=== PATIENT | male | born 1940 | race Caucasian/White ===

== ENCOUNTER 2019-05-27 18:13 | Emergency (ER) | payer MEDICARE, BC ==
[~2019-05-27 18:13] MED LIST: FLOMAX; MULT1CAP59 PO; NIA100 PO; SIMV-42 PO; SITA50TA7 PO
[2019-05-27] MEDS ORDERED: METF-450 PO (18:18)
[2019-05-27] MEDS ORDERED: ATOR40TA24 PO (18:18)
[2019-05-27] MEDS ORDERED: CARB-71 PO (18:18)
--- NOTE | 2019-05-27 18:25 | ER Report ---
History and Physical Time Seen By MD: 18:22 Hx. of Stated Complaint: PRODUCTIVE COUGH X 3-4 DAYS HPI/ROS CHIEF COMPLAINT: cough HISTORY OF PRESENT ILLNESS: This is a 79 year old male. He has had a cough for about 4 weeks now. Mild productive yellow sputum. Has had some chills, especially at night, but no known fevers. Having some sweats and fatigue. Mild loss of appetitie, but no nausea or vomiting or abdominal pain. Not short of breath and no chest pain. Mild runny nose. No sore throat. No pain. Allergies: Coded Allergies: No Known Drug Allergies (Verified , 05/27/19) Home Meds Active Scripts Azithromycin (ZITHROMAX) 250 Mg Tablet, 0 PO QDAY, #6 TAB 0 Refills Take 2 tablets today, then 1 tablet once a day starting tomorrow Prov:DERRELL MADRID MD 05/27/19 Reported Medications Atorvastatin Calcium (LIPITOR) 40 Mg Tablet, 1 TAB PO QDAY, TAB 05/27/19 Metformin Hcl (METFORMIN HCL) 500 Mg Tablet, 1 TAB PO QDAY, TAB 05/27/19 Carbidopa/Levodopa (SINEMET 25-100 MG TABLET) 1 Each Tablet, 1 EACH PO TID 05/27/19 Sitagliptin Phosphate (Januvia) 50 Mg Tablet, 50 MG PO DAILY, 0 Refills 06/10/11 Discontinued Reported Medications Niacin (Niacin) 100 Mg Tab, 100 MG PO QDAY, 0 Refills 06/10/11 Multivitamins (Multivitamin) 1 Each Capsule, 1 EACH PO DAILY, 0 Refills 06/10/11 [Flomax] No Conflict Check, 0 Refills 06/10/11 Simvastatin (Zocor) 20 Mg Tablet, 20 MG PO QHS, 0 Refills 06/10/11 Reviewed Nurses Notes: Yes Hx Smoking: Yes Hx Substance Use Disorder: No Hx Alcohol Use: Yes (OCC) Constitutional Vital Sign - Last 24 Hours 05/27/19 05/27/19 05/27/19 05/27/19 18:14 18:19 18:30 19:00 Temp 98.8 Pulse 88 Resp 20 B/P (MAP) 126/77 (93) 126/77 110/68 (82) 115/60 (78) Pulse Ox 95 O2 Delivery Room Air 05/27/19 05/27/19 05/27/1919 19:13 19:30 19:43 20:00 Pulse 83 84 B/P (MAP) 100/74 (83) 135/67 (89) Pulse Ox 96 95 93 Physical Exam General Appearance: Alert, no acute distress. Eyes: Pupils equal and round, no injection. ENT: Normal oral mucosa. Moist mucous membranes. Some posterior oropharynx drainage and erythema. Tympanic membranes and canals are normal. Neck: Neck is supple and non tender. Respiratory: Chest is non tender, lungs are clear to auscultation. Cardiac: regular rate and rhythm Neuro: Alert and oriented x3, no focal deficits. Skin: No rashes or lesions. DIFFERENTIAL DIAGNOSIS: After history and physical exam differential diagnosis was considered for ongoing cough with some symptoms that suggest possible viral restaurant infection or possible pneumonia Medical Decision Making Data Points Result Diagram: 05/27/19200905/27/192009 Laboratory Hematology Test 05/27/19 20:10 White Blood Count 8.6 k/uL (4.5-11.0) Red Blood Count 3.80 M/uL (4.00-5.60) L Hemoglobin 11.9 g/dL (14.0-18.0) L Hematocrit 33.7 % (42.0-52.0) L Mean Corpuscular Volume 88.7 fL (80.0-96.0) Mean Corpuscular Hemoglobin 31.5 pg (26.0-33.0) Mean Corpuscular Hemoglobin Concent 35.5 g/dL (32.0-36.0) Red Cell Distribution Width 12.8 % (11.5-14.5) Platelet Count 200 K/uL (150-450) Mean Platelet Volume 7.0 fL (7.2-11.1) L Neutrophils (%) (Auto) 76.0 % (39.4-72.5) H Lymphocytes (%) (Auto) 10.3 % (17.6-49.6) L Monocytes (%) (Auto) 12.7 % (4.1-12.4) H Eosinophils (%) (Auto) 0.5 % (0.4-6.7) Basophils (%) (Auto) 0.5 % (0.3-1.4) Nucleated RBC Relative Count (auto) 0.0 /100WBC Neutrophils # (Auto) 6.5 K/uL (2.0-7.4) Lymphocytes # (Auto) 0.9 K/uL (1.3-3.6) L Monocytes # (Auto) 1.1 K/uL (0.3-1.0) H Eosinophils # (Auto) 0.0 K/uL (0.0-0.5) Basophils # (Auto) 0.0 K/uL (0.0-0.1) Nucleated RBC Absolute Count (auto) 0.00 K/uL Chemistry Test 05/27/19 20:10 Sodium Level 136 mmol/L (137-145) Potassium Level 4.1 mmol/L (3.5-5.0) Chloride Level 103 mmol/L (98-107) Carbon Dioxide Level 23 mmol/L (22-30) Blood Urea Nitrogen 39 mg/dl (9-21) Creatinine 2.00 mg/dl (0.66-1.25) Glomerular Filtration Rate Calc 32.6 Random Glucose 118 mg/dl (75-110) Calcium Level 9.3 mg/dl (8.4-10.2) Total Bilirubin 1.4 mg/dl (0.2-1.3) Aspartate Amino Transf (AST/SGOT) 19 U/L (0-35) Alanine Aminotransferase (ALT/SGPT) 18 U/L (0-56) Alkaline Phosphatase 76 U/L (0-126) Total Protein 6.8 g/dl (6.3-8.2) Albumin 3.8 g/dl (3.5-5.0) EKG/Imaging Imaging 2 VIEWS CHEST INDICATION: Cough for 4 months COMPARISON: None available FINDINGS: Heart size within normal limits. There is a focal infiltrate within the lateral aspect of the right middle lobe. Left lung field appears clear. Mild coarsened interstitial changes of the lung tovar likely chronic in nature. . There is no pneumothorax or pleural effusion. IMPRESSION: 1. Right middle lobe infiltrate as above. Report Dictated By: José Luis Diego MD at 05/27/2019 7:32 PM ED Course/Re-evaluation ED Course Pneumonia identified on x-ray in the right middle lobe. Starting the patient on a azithromycin. We'll do blood cultures and labs prior to starting this and will call the patient with these results. Decision to Disposition Date: May 27, 2019 Decision to Disposition Time: 20:06 Depart Departure Latest Vital Signs Vital Signs Date Time Temp Pulse Resp B/P (MAP) Pulse Ox O2 Delivery O2 Flow Rate FiO2 05/27/19 20:00 135/67 (89) 93 05/27/19 19:43 84 05/27/19 18:19 98.8 20 Room Air Comment Patient left after labs obtained. Called and left a message for the patient regarding need to discuss some mild changes noted on labs results. Impression: Primary Impression: Community acquired pneumonia Condition: Improved Disposition: HOME OR SELF-CARE New Scripts Azithromycin (ZITHROMAX) 250 Mg Tablet 0 PO QDAY, #6 TAB 0 Refills Take 2 tablets today, then 1 tablet once a day starting tomorrow Prov: DERRELL MADRID MD 05/27/19 Patient Instructions: Community Acquired Pneumonia (ED) Additional Instructions: Start the antibiotic Azithromycin 250mg. Take 2 tablets today, then 1 tablet once a day for 4 more days. Total of 6 tablets. Rest and increase fluid intake. We recommend follow-up with a primary care provider for follow-up in the next 7- 10 days. Problem Qualifiers Primary Impression: Community acquired pneumonia Laterality: right Lung location: middle lobe of lung Qualified Codes: J18.1 - Lobar pneumonia, unspecified organism DERRELL MADRID MD May 27, 2019 18:25
--- NOTE | 2019-05-27 19:40 | RADIOLOGY IMAGING REPORT ---
FACILITY: [facility] PATIENT NAME: Williams Callahan : 1940 MR: [id number] V: [id number] EXAM DATE: ORDERING PHYSICIAN: DERRELL MADRID TECHNOLOGIST: Location: [facility] Patient: Williams Callahan : 1940 Visit/Account:[id number] Date of Sevice: 05/27/2019 2 VIEWS CHEST INDICATION: Cough for 4 months COMPARISON: None available FINDINGS: Heart size within normal limits. There is a focal infiltrate within the lateral aspect of the right middle lobe. Left lung field appea rs clear. Mild coarsened interstitial changes of the lung tovar likely chronic in nature.. There is no pneumothorax or pleural effusion. IMPRESSION: 1. Right middle lobe infiltrate as above. Report Dictated By: José Luis Diego MD at 05/27/2019 7:32 PM Report E-Signed By: José Luis Diego MD at 05/27/2019 7:33 PM [id number]
[2019-05-27 20:00] VITALS: BP 135/67
[2019-05-27] MEDS ORDERED: AZIT-1 PO (20:10)
[2019-05-27 20:32] LABS: PLATELET COUNT, AUTOMATED 200 K/uL (150-450)
== END 2019-05-27 20:26 | disposition home or self-care (01) ==
LOC: ER 18:31
DX: J18.1 Lobar pneumonia, unspecified organism (principal); Z79.899 Other long term (current) drug therapy
CPT/HCPCS: 36415; 71046; 82040; 82247; 82310; 82374; 82435; 82565; 82947; 84075; 84132; 84155; 84295; 84450; 84460; 84520; 85025; 87040; 99283